=== PATIENT | female | born 1995 | race Caucasian/White ===

== ENCOUNTER 2022-01-21 17:04 | Outpatient (CLI) | payer BC, SELFPAY ==
--- NOTE | 2022-01-21 17:00 | CRLHL7_ITS ---
For Patients: As a result of the Cures Act, medical imaging exams and procedure reports are released immediately into your electronic medical record. You may view this report before your referring provider. If you have questions, please contact your health care provider. INDICATION: First trimester scan, establish dates. COMPARISON: None. TECHNIQUE: Real-time nj-scale imaging of the pelvis was performed. FINDINGS: Sonographic imaging demonstrates a single living intrauterine gestation. The embryo demonstrates a regular cardiac rate measuring 171 beats per minute. The embryo`s crown-rump length measurement of 2.6 cm corresponds to a gestational age of 9 weeks 3 days with a sonographic due date of 08/23/2022. There is a normal-appearing yolk sac. Umbilical cord cyst is present measuring 3 x 3 x 3 millimeters. The gestational sac has a normal appearance. There is no evidence of a perigestational hemorrhage. The amount of fluid within the sac appears appropriate for gestational age. The cervix is closed. The myometrium appears normal. The ovaries are of normal size. There are no suspicious fluid collections noted in the cul-de-sac. IMPRESSION: Single living intrauterine with sonographic gestational age 9 weeks 3 days and sonographic due date of 08/23/2022. 3 millimeter umbilical cord cyst, likely incidental. Follow-up in 10-11 days suggested. Dictated by Henrry So MD @ 01/22/2022 8:54:50 AM (Electronically Signed)
== END 2022-01-21 17:05 | disposition home or self-care (01) ==
LOC: US 17:05
PROVIDERS: Visit Provider Advanced Practice Midwife
DX: Z34.91 Encounter for supervision of normal pregnancy, unspecified, first trimester (principal); Z3A.09 9 weeks gestation of pregnancy
CPT/HCPCS: 76817

== ENCOUNTER 2022-02-18 14:31 | Outpatient (CLI) | payer BC, SELFPAY ==
--- NOTE | 2022-02-18 15:00 | CRLHL7_ITS ---
For Patients: As a result of the Century Cures Act, medical imaging exams and procedure reports are released immediately into your electronic medical record. You may view this report before your referring provider. If you have questions, please contact your health care provider. INDICATION: Follow-up umbilical cord cyst COMPARISON: 01/21/2022 TECHNIQUE: Real-time nj-scale imaging of the pelvis was performed. FINDINGS: Umbilical cord cyst not visualized on today`s exam. Single living intrauterine with sonographic gestational age 14 weeks 1 day and sonographic due date of 08/18/2022. Estimated weight 86 grams, 28th percentile. BPD 47th percentile. HC 36th percentile. AC 62nd percentile. FL 29th percentile. HC/AC ratio 1.21 (1.09-1.36). Transverse position. Placenta anterior. IMPRESSION: Single living intrauterine with sonographic gestational age 14 weeks 1 day and sonographic due date of 08/18/2022. Interval resolution of previously noted umbilical cord cyst. Dictated by Henrry So MD @ 02/18/2022 3:33:25 PM (Electronically Signed)
== END 2022-02-18 14:32 | disposition home or self-care (01) ==
PROVIDERS: Visit Provider Physician Assistant
DX: O36.8990 Maternal care for other specified fetal problems, unspecified trimester, not applicable or unspecified (principal); Z3A.14 14 weeks gestation of pregnancy
CPT/HCPCS: 76816

== ENCOUNTER 2022-03-25 08:39 | Outpatient (CLI) | payer BC, SELFPAY ==
--- NOTE | 2022-03-25 08:45 | CRLHL7_ITS ---
For Patients: As a result of the Century Cures Act, medical imaging exams and procedure reports are released immediately into your electronic medical record. You may view this report before your referring provider. If you have questions, please contact your health care provider. INDICATION: Evaluate anatomy. COMPARISON: 02/18/2022, 01/21/2022 TECHNIQUE: Real time nj scale imaging of the fetus was performed as well as color Doppler analysis of the umbilical vessels. FINDINGS: Sonographic imaging demonstrates a single living intrauterine gestation. Fetus demonstrates a regular cardiac rate of 143 beats per minute. Fetus has a vertex position. The placenta lies anteriorly without evidence of placenta previa. The placenta is located 6.8 cm from the internal cervical os. Amniotic fluid volume appears normal. Single deepest vertical pocket: 2.8 cm. The cervix is closed and measures 3.8 cm in length. The composite ultrasound gestational age is calculated at 18 weeks 6 days with an estimated sonographic due date of 08/20/2022. The estimated weight is 265 grams which lies at the 41st %. The following biometric measurements were obtained: Biparietal diameter: 4.3 cm/19 weeks 0 days 48th% Head circumference: 15.7 cm/18 weeks 4 days 23rd% Abdominal circumference: 13.5 cm/19 weeks 0 days 44th% Femur length: 2.9 cm/19 weeks 0 days 43rd% The HC/AC ratio measures: 1.16 range (1.09-1.26) On anatomic survey, there is a normal appearance of the cerebral ventricles, cavum septi pellucidi, cisterna magna and cerebellum. The nose, lips, and facial profile appear normal. The cervical, thoracic and lumbar spine are well visualized and appear normal. Incomplete visualization of the four-chamber heart and outflow tracts due to position. The diaphragm and stomach appear normal. The kidneys and bladder also appear normal. There is a normal three-vessel cord and cord insertion site. The four extremities appear normal. IMPRESSION: Concordance of clinical and sonographic dating. Incomplete visualization of the four-chamber heart and outflow tracts due to position. Short-term follow-up recommended. Remainder of the anatomic survey is normal. Dictated by Henrry So MD @ 03/25/2022 1:28:57 PM (Electronically Signed)
== END 2022-03-25 08:40 | disposition home or self-care (01) ==
PROVIDERS: Visit Provider Physician Assistant
DX: Z34.92 Encounter for supervision of normal pregnancy, unspecified, second trimester (principal); Z3A.19 19 weeks gestation of pregnancy
CPT/HCPCS: 76805

== ENCOUNTER 2022-04-22 14:40 | Outpatient (CLI) | payer BC, SELFPAY ==
--- NOTE | 2022-04-22 15:00 | CRLHL7_ITS ---
For Patients: As a result of the Century Cures Act, medical imaging exams and procedure reports are released immediately into your electronic medical record. You may view this report before your referring provider. If you have questions, please contact your health care provider. INDICATION: female. Follow up anatomic survey. A previous ultrasound March 25, 2022 demonstrated incomplete visualization of the four-chamber heart and outflow tracts. TECHNIQUE: Limited transabdominal obstetrical ultrasound. COMPARISON: March 25, 2022. FINDINGS: Single living intrauterine with a heart rate of 150 beats per minute. Normal amniotic fluid. Single deepest pocket measurement 4.4 cm. The right and left ventricular outflow tracts are within normal limits. The four-chamber heart view is within normal limits. IMPRESSION: Completion of the anatomic survey. The 4 chamber heart view and outflow tracts are within normal limits. Dictated by Charles Subramanian MD @ 04/23/2022 8:42:35 AM (Electronically Signed)
== END 2022-04-22 14:41 | disposition home or self-care (01) ==
PROVIDERS: Visit Provider Obstetrics & Gynecology
DX: O35.BXX0 Maternal care for other (suspected) fetal abnormality and damage, fetal cardiac anomalies, not applicable or unspecified (principal); Z3A.00 Weeks of gestation of pregnancy not specified
CPT/HCPCS: 76816

== ENCOUNTER 2022-05-20 15:13 | Outpatient (CLI) | payer BC, SELFPAY ==
[2022-05-24 01:45] LABS: Rapid Plasma Reagin (RPR) Non Reactive (Non Reactive)
== END 2022-05-20 15:14 | disposition home or self-care (01) ==
LOC: NFLDREF 15:14
PROVIDERS: Visit Provider Registered Nurse
DX: O26.892 Other specified pregnancy related conditions, second trimester (principal); Z67.91 Unspecified blood type, Rh negative; Z3A.27 27 weeks gestation of pregnancy
CPT/HCPCS: 86592; 86850

== ENCOUNTER 2022-07-22 15:00 | Outpatient (CLI) | payer BC, SELFPAY | END 2022-07-22 15:01 | disposition home or self-care (01) | LOC: NFLDREF 07-25 10:05 | PROVIDERS: Visit Provider Obstetrics & Gynecology | DX: Z34.93 Encounter for supervision of normal pregnancy, unspecified, third trimester (principal); Z3A.36 36 weeks gestation of pregnancy | CPT/HCPCS: 87081; 87653 ==

== ENCOUNTER 2022-08-06 14:13 | Inpatient (IN) | payer BC, SELFPAY ==
[2022-08-06] VITALS (12 sets, daily range): BP systolic 101–130; BP diastolic 58–85; PULSE 61–99; RESP 16–18; TEMP 36.9–37.1; O2SAT 100; BMI 35.6
[2022-08-06 14:52] LABS: Total Protein Urine 9 mg/dL
[2022-08-06 15:44] LABS: Basophils Percent Auto 0.2 % (0.0-3.0); Eosinophils Percent Auto 0.4 % (0.0-7.0); Hematocrit 32.7 % (33.0-51.0); Hemoglobin* 10.7 gm/dL (12.0-16.0); Immature Granulocytes Pct Auto 0.3 %; Lymphocytes Percent Auto 17.1 % (20-44); Mean Corpuscular HGB Conc 33 gm/dL (32-36); Mean Corpuscular Hemoglobin 27 pg (26-34); Mean Corpuscular Volume 81 fL (80-100); Monocytes Percent Auto 6.4 % (0.0-11.0); Neutrophils Percent Auto 75.6 % (42.0-72.0); Platelet Count* 238 K/uL (140-440); RDW Coefficient of Variation % 12.9 % (11.5-15.5); Red Blood Count 4.03 m/uL (4.00-5.20); White Blood Count* 12.23 K/uL (4.50-11.00)
--- NOTE | 2022-08-06 16:51 | W.PM.LDBA ---
Subjective History of Present Illness Date Seen: 08/06/22 Narrative: Patient is being admitted to Labor and Delivery for IOL after GHTN diagnosis. She is a 27 year old at 38 1/7 weeks gestation. Her full history and physical was dictated by Dr. Rivera on 07/30/22. Please see this for details. Patient seen yesterday in clinic and found with elevated blood pressure, monitored and found normal, sent home to repeat evaluation today and was found with diastolic of 90. Elevation of blood pressure more than 4 hours apart diagnosis of GTHN and recommendation for admission and start IOL. Comments: Specific Issues/Plans JAYLYN Blood type:? A negative Spouse: Grant. Baby: Male - Shaq 1. Obesity, BMI 33.8 No HgbA1C at her first ob ([facility]) 2. Lumbar disc disease, history of L4-L5 disc herniation.? Sees chiropractor.? 3. History of exercise-induced asthma, has not needed treatment since high school 4. Frequent UTIs, 2-3 per year.? None during .? 5. Rh-negative status RhoGAM:? 05/20/22 6. Umbilical cord cyst on first-trimester ultrasound Follow-up ultrasound with next visit: resolved 7. Anemia, with Hb 10.9 at 36 weeks.? Slow Fe QOD. 8.? Elevated BP in clinic on 08/05/22.? AST 38, Prot:cr 0.10, otherwise normal labs.? Serial BP in Center high-normal. To return for repeat BP and labs on 08/06/22.? Flu shot:? 12/26/2021 Bivalent covid booser: 12/26/2021 Tdap: 06/17/2022 OB - Problem Based A/P Additional Plan (1) Gestational hypertension: Status: Acute Plan 1. IOL started with placement of cook catheter at a 4:30pm, 60/60mL. Will leave in place for 12 hours, will plan to start IV oxytocin at around 9:30pm. 2. Continuos monitoring. 3. Patient plans to get epidural at some point for pain management. 4. Repeat preeclampsia labs tomorrow morning, unless there is clinical changes concerning for severe hypertension. 5. GBS negative no need for antibiotic prophylaxis. Delivery/Labor/Induction Plan Plan: induction Induction method: Intracervical balloon catheter OB Result Labs Labs: 08/06/22 Hgb: 10.7 Platelets: 238 BUN:12 Creatinine:0.6 AST: 31 ALT: 45 (from 38) slightly elevated, not doubled Prot/creat ratio:0.10 Labs Blood Type: A (-) negative Rubella: immune RPR/VDLR: nonreactive GBS Status: negative HBsAG: negative OB Exam Physical Exam Vital signs: Temp Pulse Resp BP Pulse Ox 98.8 F 76 16 130/83 100 08/06/22 14:29 08/06/22 15:41 08/06/22 14:29 08/06/22 15:41 08/06/22 14:22 Detailed Labor and Delivery Exam Patient Gravid: Yes Dilation (cm): 1 Effacement (%): 75 Cervix position: anterior Consistency: soft Contraction Frequency: Irregular Tachysystole: No Contraction intensity: Mild Fetus (Single) Station: -2 Amniotic Membrane Status: intact Heart Rate Baseline: 130 Monitor Accelerations: Present Monitor Decelerations: None [employer]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
[2022-08-06] MEDS: LACTATED RINGERS 1000 ML 1,000 ML 125 ML IV (20:53)
[2022-08-06] MEDS: OXYTOCIN 30 unit/500 ML in NS 30 UNIT/500 ML BAG IVPB (20:53)
[2022-08-07] VITALS (81 sets, daily range): BP systolic 99–143; BP diastolic 55–87; PULSE 63–200; RESP 16–18; TEMP 36.5–37.3; O2SAT 99–100
[2022-08-07 01:03] LABS: Slide Review Reflex No
[2022-08-07] MEDS: LACTATED RINGERS 1000 ML 1,000 ML 118 ML IV (03:55)
[2022-08-07 06:26] LABS: Hematocrit 31.3 % (33.0-51.0); Hemoglobin* 10.3 gm/dL (12.0-16.0); Mean Corpuscular HGB Conc 33 gm/dL (32-36); Mean Corpuscular Hemoglobin 27 pg (26-34); Mean Corpuscular Volume 81 fL (80-100); Platelet Count* 215 K/uL (140-440); Red Blood Count 3.86 m/uL (4.00-5.20)
[2022-08-07 06:30] LABS: Slide Review Reflex No
[2022-08-07 06:43] LABS: Alanine Aminotransferase* 49 U/L (4-35); Aspartate Amino Transferase* 33 U/L (12-35); Blood Urea Nitrogen* 8 mg/dL (5-24); Creatinine* 0.6 mg/dL (0.5-1.5); Est. Creatinine Clearance* 145.89; Estimated Glomerular Filt Rate 125 ml/min
[2022-08-07 07:04] LABS: Fibrinogen* 552 mg/dL (200-450)
--- NOTE | 2022-08-07 07:57 | PM.OBPNL ---
Subjective Time Seen by Provider: 08:40 Date Seen: 08/07/22 Narrative: Subjective: Patient is feeling mild cramping with contractions. Pitocin: 12 milliunits/minute. Blood pressure overnight range: 101-131/58-82. Vital signs: Per electronic medical record. EFM: Baseline 130 bpm, multiple accelerations, no decelerations, moderate variability, reactive. Category 1. [place]: Contractions every 2-5 minutes. SVE: 3 cm/90 %/-2. AROM at 8:55 a.m., clear fluid. Assessment: 27-year-old 1 para 0 at 38 weeks to days gestation undergoing induction of labor for gestational hypertension. Plan: 1. Continue Pitocin per labor induction protocol. 2. Planning epidural for labor analgesia. 3. Blood type A negative. 4. GBS negative Objective Vital Signs: Last Vital Signs Temp 98.4 F 08/07/22 06:43 Pulse 70 08/07/22 06:43 Resp 16 08/07/22 06:43 BP 126/72 08/07/22 06:43 Pulse Ox 100 08/06/22 14:22 Contractions Monitor mode: External Contraction Frequency: Q 2-5 minutes Contraction pattern: Irregular Contraction intensity: Mild Pitocin Rate (mU/min): 12 Assessment Assessment: induction ongoing Station: -2 Amniotic Membrane Status: AROM Status: Category l Heart Rate Baseline: 130 Civil Attorney Variability: Moderate (6-25) Monitor Accelerations: Present Monitor Decelerations: None Tracing Comments: Reactive
[2022-08-07] MEDS: LACTATED RINGERS 1000 ML 1,000 ML 110 ML IV (10:41)
[2022-08-07] MEDS: ROPIVACAINE 0.2 % PF 10 ML INJ 20 MG EPIDURAL (10:41)
[2022-08-07] MEDS: ROPIVACAINE 0.2% 100 ml 100 ML 12 MG EPIDURAL ×2 (10:42→18:37)
--- NOTE | 2022-08-07 11:57 | PM.ANBPRC ---
PFSH PFS Medical History (Updated 08/06/22 @ 17:02 by Latasha Dalton MD) Eczema ?L30.9 - Dermatitis, unspecified (ICD-10) History of recurrent UTIs ?Z87.440 - Personal history of urinary (tract) infections (ICD-10) GERD (gastroesophageal reflux disease) ?K21.9 - Gastro-esophageal reflux disease without esophagitis (ICD-10) Chronic constipation ?K59.09 - Other constipation (ICD-10) Asthma ?J45.909 - Unspecified asthma, uncomplicated (ICD-10) Lumbar disc disease ?M51.9 - Unspecified thoracic, thoracolumbar and lumbosacral intervertebral disc disorder (ICD-10) Surgical History (Updated 01/21/22 @ 13:44 by Shelley Ruiz PA-C) History of wisdom tooth extraction ?K08.409 - Partial loss of teeth, unspecified cause, unspecified class (ICD-10) Family History (Updated 01/21/22 @ 13:46 by Shelley Ruiz PA-C) Mother High blood pressure Spinal cord tumor Father High blood pressure Maternal Grandmother Diabetes Uncle Heart disease Family/Other Thyroid cancer Family/Other Lung cancer Social History (Updated 07/30/22 @ 09:51 by Shazia Rivera MD) 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 . Nonsmoker. Lives in [facility] with . Smoking Status: Never smoker Little interest or pleasure in doing things: not at all Feeling down, depressed, or hopeless: not at all Meds Home Medications and Allergies Home Medications Medication Instructions Recorded Confirmed Type triamcinolone acetonide 0.5 % 1 applic topical .PRN 01/21/22 08/06/22 History topical cream psyllium husk 3.4 gram/5.4 gram 1 tbsp PO ONCE 06/02/22 08/06/22 History oral powder (Metamucil) bisacodyl 5 mg tablet 5 mg PO ONCE 07/22/22 08/06/22 History ferrous sulfate 142 mg (45 mg 142 mg PO QDAY 07/30/22 08/06/22 History iron) tablet,extended release (Slow Fe) docosahexaenoic acid 50 mg PO .twice daily 08/05/22 08/06/22 History Allergies Allergy/AdvReac Type Severity Reaction Status Date / Time No Known Drug Allergies Allergy Verified 08/06/22 13:49 Results Labs Labs: Laboratory Results - last 24 hr 08/06/22 08/06/22 08/07/22 14:18 15:22 06:20 WBC 12.23 H 13.30 H RBC 4.03 3.86 L Hgb 10.7 L 10.3 L Hct 32.7 L 31.3 L MCV 81 81 MCH 27 27 MCHC 33 33 RDW Coeff of Misael 12.9 Plt Count 238 215 Neut % (Auto) 75.6 H Lymph % (Auto) 17.1 L Miller % (Auto) 6.4 Eos % (Auto) 0.4 Baso % (Auto) 0.2 Neut # (Auto) 9.20 H Lymph # (Auto) 2.10 Miller # (Auto) 0.80 Eos # (Auto) 0.00 Baso # (Auto) 0.00 Fibrinogen 552 H BUN 8 Creatinine 0.6 Estimated Creat Clear 145.89 Estimated GFR 125 Uric Acid 6.0 AST 33 ALT 49 H Urine Creatinine 78.0 Protein/Creatinin Ratio 0.10 Urine Total Protein 9 Blood Type A Negative Antibody Screen NEGATIVE Vital Signs Vital Signs: Last Vital Signs Temp 97.7 F 08/07/22 11:00 Pulse 74 08/07/22 11:53 Resp 16 08/07/22 08:00 BP 106/60 08/07/22 11:53 Pulse Ox 100 08/07/22 11:05 Weight: 108.919 kg Height: 175.26 cm Anesthesia Procedures Epidural Insertion Patient Location: OB Start Time: 10:40 Stop Time: 11:40 Start Date: 08/07/22 Stop Date: 08/07/22 Reason for Block: procedure for pain Patient Position: sitting Performed By: George Sanders Preanesthetic Checklist: IV checked, site marked, risks and benefits discussed, surgical consent, monitors and equipment checked, pre-op evaluation, timeout performed and anesthesia consent Prep: chlorhexidine gluconate Monitoring: blood pressure monitoring, continuous pulse oximetry and heart rate Approach: midline Vertebral Space: lumbar (1-5) Needle Type: Tuohy needle Injection Technique: continuous catheter (catheter) Needle gauge: 17 Needle Length (cm): 10 cm Needle Insertion Depth (cm): 6 Catheter Gauge: 19 Catheter Type: multi-orifice Catheter at skin depth (cm): 12 Test Dose Result: negative and lidocaine 1.5% with epinephrine 1 to 200,000
[2022-08-07 12:39] LABS: Hematocrit 34.2 % (33.0-51.0); Mean Corpuscular HGB Conc 32 gm/dL (32-36); Mean Corpuscular Hemoglobin 26 pg (26-34); Mean Corpuscular Volume 82 fL (80-100); Platelet Count* 214 K/uL (140-440); Red Blood Count 4.18 m/uL (4.00-5.20); White Blood Count* 15.56 K/uL (4.50-11.00)
[2022-08-07 12:43] LABS: Slide Review Reflex No
[2022-08-07 12:57] LABS: Alanine Aminotransferase* 56 U/L (4-35); Aspartate Amino Transferase* 33 U/L (12-35); Blood Urea Nitrogen* 8 mg/dL (5-24); Creatinine* 0.6 mg/dL (0.5-1.5); Est. Creatinine Clearance* 145.89; Estimated Glomerular Filt Rate 125 ml/min
--- NOTE | 2022-08-07 18:06 | P.OBPN_ITS ---
Subjective Time Seen by Provider: 17:45 Date Seen: 08/07/22 Narrative: Subjective: Patient is comfortable w/ epidural/uncomfortable with contractions. Pitocin: 17 milliunits/minute. Vital signs: Per electronic medical record. EFM: Baseline 140, + accelerations, one variable deceleration at 1801, moderate variability, reactive. Category 2. [place]: Contractions every 2-3 minutes. SVE: 10 cm/100 %/0 - +1. Assessment: 27-year-old 1 para 0 at 38 weeks 2 days gestation undergoing induction of labor due to gestational hypertension. Plan: 1. Continue Pitocin per labor induction protocol. 2. Will do some position changes on the spinning babies circuit then begin pushi ng. Objective Vital Signs: Last Vital Signs Temp 98.9 F 08/07/22 18:01 Pulse 131 H 08/07/22 17:37 Resp 16 08/07/22 08:00 BP 131/87 08/07/22 17:37 Pulse Ox 100 08/07/22 11:05 Contractions Monitor mode: External Contraction pattern: Irregular Contraction intensity: Mild Pitocin Rate (mU/min): 12 Assessment Station: -2 Amniotic Membrane Status: AROM Status: Category l Heart Rate Baseline: 130 Monitor Accelerations: Present Monitor Decelerations: None
[2022-08-07 19:04] LABS: Hematocrit 32.9 % (33.0-51.0); Hemoglobin* 10.7 gm/dL (12.0-16.0); Mean Corpuscular HGB Conc 33 gm/dL (32-36); Mean Corpuscular Hemoglobin 27 pg (26-34); Mean Corpuscular Volume 82 fL (80-100); Platelet Count* 208 K/uL (140-440); Red Blood Count 4.02 m/uL (4.00-5.20); White Blood Count* 16.97 K/uL (4.50-11.00)
[2022-08-07 19:10] LABS: Slide Review Reflex No
[2022-08-07 19:20] LABS: Alanine Aminotransferase* 54 U/L (4-35); Aspartate Amino Transferase* 32 U/L (12-35); Creatinine* 0.6 mg/dL (0.5-1.5); Est. Creatinine Clearance* 145.89; Estimated Glomerular Filt Rate 125 ml/min
[2022-08-07 19:21] LABS: Blood Urea Nitrogen* 8 mg/dL (5-24)
[2022-08-07] MEDS: miSOPROStoL 800 MCG/4 TABLET PR (21:44)
--- NOTE | 2022-08-07 22:08 | W.PM.VAGDEL1 ---
Procedure Delivery date: 08/07/22 Procedure Done: Global Procedure Details: Ericka is a 27 year-old G 1 P 0 now 1 admitted on 08/06/2022 at approximately 5:00 p.m. at 38 Weeks, 2 Days gestation for induction of labor for gestational hypertension. A Cook catheter was placed followed by low-dose Pitocin. AROM occurred at 8:55 a.m. on 08/07/2022 with clear fluid. Labor Analgesia: Epidural Pitocin: Yes Labor onset: 08/07/2022 at 10:30 a.m.. Complete: 08/07/2022 at 5:34 p.m.. Pushin08/07/2022 at 7:00 p.m.. heart tones during second stage were: Category 2 with intermittent variable/early decelerations with contractions. Two attempts at manual rotation of the vertex were performed during the 2nd stage due to minimal progress after 1 hour of pushing and a vertex noted to be in the ROT position. After 2nd manual rotation the vertex appeared to remain in direct OA position. Moderate variability throughout, reassuring. At 9:29 p.m. a viable male infant delivered in vertex direct OA presentation over second-degree perineal laceration with extension on to the left labia majus via spontaneous vaginal delivery. The was placed on maternal abdomen. Cord was clamped and cut after a 60+ second delay. Nose and mouth were bulb suctioned. weight pending. 8 at 1 minute and 9 at 5 minutes. Shoulder dystocia: No. Nuchal cord: Yes: Loose nuchal cord easily reduced prior to delivery of the 's shoulders. Terminal meconium was noted. Placenta delivered spontaneously and complete at 9:41 p.m. on 08/07/2022 with a 3 vessel cord. There was moderate uterine atony noted after delivery of the placenta. The uterus was cleared of clots with a manual removal. 800 mg Cytotec was placed rectally. Laceration(s): Second-degree. Repaired using 3-0 Vicryl suture in the usual manner. The extension of the second-degree laceration on to the left labia majus was repaired with 3-0 Vicryl in a running manner. Blood loss: 150 mL. Blood loss measurement type: Quantitative Sponge and needles counts are correct. Specimen: Placenta due to gestational hypertension Mother and infant were stable after delivery. 's name: Shaq Jones The patient is planning on breast feeding. Events: Gestational Hypertension and Labor Induction Delivery monitor: external FHT Route of delivery: Laceration description: Labial (Extension onto the left labia majus 1st degree.) Delivery repair: Vicryl Estimated blood loss (mL): 150 Anesthesia type: Epidural Disposition: floor [place] Infant Gender: Male presentation: vertex Placental Delivery Description: Spontaneous Cord Description: 3 Vessels, Nuchal Cord, Loose and Reduced
[2022-08-08] VITALS (7 sets, daily range): BP systolic 114–125; BP diastolic 76–84; PULSE 67–92; RESP 16–18; TEMP 36.6–37.2; O2SAT 96–100
[2022-08-08] MEDS: ACETAMINOPHEN 500 MG TABLET 1000 MG PO ×3 (00:11→19:20)
[2022-08-08] MEDS: IBUPROFEN 600 MG TABLET PO ×4 (02:34→20:37)
[2022-08-08 05:18] LABS: Hematocrit 28.8 % (33.0-51.0); Hemoglobin* 9.5 gm/dL (12.0-16.0); Mean Corpuscular HGB Conc 33 gm/dL (32-36); Mean Corpuscular Hemoglobin 27 pg (26-34); Mean Corpuscular Volume 80 fL (80-100); Platelet Count* 199 K/uL (140-440); Red Blood Count 3.59 m/uL (4.00-5.20); White Blood Count* 20.37 K/uL (4.50-11.00)
[2022-08-08 05:26] LABS: Slide Review Reflex No
[2022-08-08 05:33] LABS: Alanine Aminotransferase* 56 U/L (4-35); Aspartate Amino Transferase* 41 U/L (12-35); Blood Urea Nitrogen* 9 mg/dL (5-24); Creatinine* 0.7 mg/dL (0.5-1.5); Est. Creatinine Clearance* 125.04; Estimated Glomerular Filt Rate 121 ml/min
--- NOTE | 2022-08-08 07:59 | PM.OBDSVD1 ---
DS: Providers Provider Date Seen: 08/08/22 Date of admission: 08/06/22 14:13 Primary care physician: Not a Local Provider Admitting Clinician: Latasha Dalton MD Attending Physician on discharge: Latasha Dalton MD Date of Discharge: 08/08/22 DS: Diagnosis Discharge Diagnosis (1) Lactating mother: Status: Acute (2) care following vaginal delivery: Status: Acute (3) anemia: Status: Acute Exam Narrative: Exam Narrative: GENERAL APPEARANCE:? normal affect, alert, no distress? MOOD:? appropriate? CHEST:? clear to auscultation and percussion? HEART:? regular rate and rhythm? ABDOMEN:? soft, non-tender the uterine fundus is 2 cm Below Umbilicus, Midline and is appropriate for the stage of recovery. ? PERINEUM:? mild edema of the perineum, there is a 2nd degree that is healing well.? EXTREMITIES:? normal and no edema? Patient has no complaints? No active bleeding?? Doing well? She is requesting discharge home.? Const: Vital Signs, click to edit/add: Vital Signs - 24 hr 08/07/22 08:00 08/07/22 08:02 08/07/22 09:29 Temperature 98.4 F Pulse Rate 66 71 Pulse Rate [Pulse Oximeter] Respiratory Rate 16 Blood Pressure 122/83 125/74 Blood Pressure [Le ft Arm] Pulse Oximetry Oxygen Delivery [facility] 08/07/22 10:00 08/07/22 10:45 08/07/22 10:50 Temperature 98.3 F Pulse Rate Pulse Rate [Pulse Oximeter] Respiratory Rate Blood Pressure Blood Pressure [Le ft Arm] Pulse Oximetry [address] [facility] 08/07/22 10:52 08/07/22 10:55 08/07/22 10:57 Temperature Pulse Rate 83 78 81 Pulse Rate [Pulse Oximeter] Respiratory Rate Blood Pressure 135/84 142/78 H 136/86 Blood Pressure [Le ft Arm] Pulse Oximetry [facility] 10:59 08/07/22 11:00 08/07/22 11:00 Temperature 97.7 F Pulse Rate 71 Pulse Rate [Pulse Oximeter] Respiratory Rate Blood Pressure 131/81 Blood Pressure [Le ft Arm] Pulse Oximetry [address] [facility] 08/07/22 11:01 08/07/22 11:03 08/07/22 11:05 Temperature Pulse Rate 81 75 76 Pulse Rate [Pulse Oximeter] Respiratory Rate Blood Pressure 129/82 132/78 128/81 Blood Pressure [Le ft Arm] Pulse Oximetry 100 Oxygen Delivery Nd thod 08/07/22 11:12 08/07/22 11:16 08/07/22 11:21 Temperature Pulse Rate 77 73 74 Pulse Rate [Pulse Oximeter] Respiratory Rate Blood Pressure 115/55 L 103/56 L 99/58 L Blood Pressure [Le ft Arm] Pulse Oximetry Oxygen Delivery Nd thod 08/07/22 11:38 08/07/22 11:53 08/07/22 12:08 Temperature Pulse Rate 75 74 70 Pulse Rate [Pulse Oximeter] Respiratory Rate Blood Pressure 114/57 L 106/60 106/65 Blood Pressure [Le ft Arm] Pulse Oximetry Oxygen Delivery Nd thod 08/07/22 12:53 08/07/22 13:00 08/07/22 13:23 Temperature 98.2 F Pulse Rate 69 75 Pulse Rate [Pulse Oximeter] Respiratory Rate Blood Pressure 99/58 L 105/69 Blood Pressure [Le ft Arm] Pulse Oximetry Oxygen Delivery Nd thod 08/07/22 13:38 08/07/22 13:52 08/07/22 14:09 Temperature Pulse Rate 71 68 73 Pulse Rate [Pulse Oximeter] Respiratory Rate Blood Pressure 108/61 111/63 109/62 Blood Pressure [Le ft Arm] Pulse Oximetry Oxygen Delivery Nd thod 08/07/22 14:23 08/07/22 14:37 08/07/22 14:45 Temperature 98.2 F Pulse Rate 69 65 Pulse Rate [Pulse Oximeter] Respiratory Rate Blood Pressure 109/61 112/61 Blood Pressure [Le ft Arm] Pulse Oximetry Oxygen Delivery Nd thod 08/07/22 14:53 08/07/22 15:08 08/07/22 15:23 Temperature Pulse Rate 68 63 74 Pulse Rate [Pulse Oximeter] Respiratory Rate Blood Pressure 106/59 L 116/59 L 117/60 Blood Pressure [Le ft Arm] Pulse Oximetry Oxygen Delivery Nd thod 08/07/22 15:39 08/07/22 15:45 08/07/22 15:53 Temperature 98.1 F Pulse Rate 68 94 Pulse Rate [Pulse Oximeter] Respiratory Rate Blood Pressure 111/56 L 130/76 Blood Pressure [Le ft Arm] Pulse Oximetry Oxygen Delivery Nd thod 08/07/22 16:08 08/07/22 16:22 08/07/22 16:30 Temperature 98.2 F Pulse Rate 81 78 Pulse Rate [Pulse Oximeter] Respiratory Rate Blood Pressure 131/78 128/73 Blood Pressure [Le ft Arm] Pulse Oximetry Oxygen Delivery Nd thod 08/07/22 16:37 08/07/22 16:54 08/07/22 17:07 Temperature Pulse Rate 90 91 97 Pulse Rate [Pulse Oximeter] Respiratory Rate Blood Pressure 126/75 143/75 H 125/69 Blood Pressure [Le ft Arm] Pulse Oximetry Oxygen Delivery Nd thod 08/07/22 17:23 08/07/22 17:37 08/07/22 18:01 Temperature 98.9 F Pulse Rate 92 131 H Pulse Rate [Pulse Oximeter] Respiratory Rate Blood Pressure 126/80 131/87 Blood Pressure [Le ft Arm] Pulse Oximetry [facility] 08[facility] 18:23 08/07/22 18:38 08/07/22 18:53 Temperature Pulse Rate 93 91 200 H Pulse Rate [Pulse Oximeter] Respiratory Rate Blood Pressure 118/78 126/72 127/73 Blood Pressure [Le ft Arm] Pulse Oximetry [facility] 08/07/22 19:08 08/07/22 19:19 08/07/22 19:23 Temperature 98.7 F Pulse Rate 71 68 Pulse Rate [Pulse Oximeter] Respiratory Rate 18 Blood Pressure 125/67 129/63 Blood Pressure [Le ft Arm] Pulse Oximetry [facility] 08/07/22 19:23 08/07/22 19:38 08/07/22 19:53 Temperature 98.2 F Pulse Rate 65 71 Pulse Rate [Pulse Oximeter] Respiratory Rate 16 Blood Pressure 125/65 126/68 Blood Pressure [Le ft Arm] Pulse Oximetry [facility] 08/07/22 20:10 08/07/22 20:24 08/07/22 21:08 Temperature 98.5 F Pulse Rate 92 129 H Pulse Rate [Pulse Oximeter] Respiratory Rate Blood Pressure 111/58 L 115/75 Blood Pressure [Le ft Arm] Pulse Oximetry [facility] 08/07/22 21:38 08/07/22 21:43 08/07/22 21:44 Temperature 98.7 F Pulse Rate 89 82 Pulse Rate [Pulse Oximeter] Respiratory Rate 18 Blood Pressure 130/78 129/80 Blood Pressure [Le ft Arm] Pulse Oximetry Oxygen Delivery Me thod 08/07/22 21:58 08/07/22 22:00 08/07/22 22:13 Temperature 98.2 F Pulse Rate 90 86 Pulse Rate [Pulse Oximeter] Respiratory Rate 18 Blood Pressure 120/72 113/66 Blood Pressure [Le ft Arm] Pulse Oximetry [facility] 08/07/22 22:15 08/07/22 22:28 08/07/22 22:30 Temperature 98.2 F 99.2 F Pulse Rate 95 Pulse Rate [Pulse Oximeter] Respiratory Rate 18 18 Blood Pressure 113/66 Blood Pressure [Le ft Arm] Pulse Oximetry [facility] 08/07/22 22:43 08/07/22 22:45 08/07/22 22:58 Temperature 98.7 F Pulse Rate 94 86 Pulse Rate [Pulse Oximeter] Respiratory Rate 18 Blood Pressure 117/57 L 124/65 Blood Pressure [Le ft Arm] Pulse Oximetry Oxygen Delivery Nd thod 08/07/22 23:00 08/07/22 23:13 08/07/22 23:15 Temperature 98.3 F Pulse Rate 85 Pulse Rate [Pulse Oximeter] Respiratory Rate 18 18 Blood Pressure 121/66 Blood Pressure [Le ft Arm] Pulse Oximetry [facility] 08/07/22 23:28 08/07/22 23:30 08/07/22 23:43 Temperature Pulse Rate 79 80 Pulse Rate [Pulse Oximeter] Respiratory Rate 18 Blood Pressure 124/64 126/67 Blood Pressure [Le ft Arm] Pulse Oximetry [facility] 08/07/22 23:45 08/08/22 00:08 08/08/22 04:30 Temperature 98.9 F 99.0 F 98.6 F Pulse Rate Pulse Rate [Pulse Oximeter] 92 92 Respiratory Rate 18 18 18 Blood Pressure Blood Pressure [Le ft Arm] 122/76 125/81 Pulse Oximetry 99 99 Oxygen Delivery Nd thod Room Air Room Air OB - DS: Summary Hospital Course Hospital Course: Patient is a 27year old, G 1 now P 1? admitted on 08/07/22 at 38 Weeks, 2 Days gestation.? She had an uncomplicated vaginal delivery.? She delivered a viable male infant.? She is breast feeding and reports that bay is having some difficulty with latching. Planning on seeing today and she is questioning if baby has a lip tie.? the patient has done well.? Her pain is well controlled with current medications.? She has no new complaints.? Vitals have been stable. She has remained afebrile. She is voiding without difficulty. She is passing gas and has not had a bowel movement. She is ambulating and denies any dizziness. She is probably planning IUD for control.??? Peripartum Data delivery method: Vaginal Laceration description: Perineal - 2nd Degree Episiotomy description: None complications: none Gender: Male Infant Discharge Plan: Home Status at Discharge Functional status at discharge: independent ambulation Overall status at discharge: patient is progressing back to baseline Time Spent with Patient Time attestation: Total time spent providing and/or coordinating discharge services: Discharge Plan Discharge Disposition: Home, Self-Care Date of Admission: 08/06/22 14:13 Attending Provider on Discharge: Ashia Delgado Primary Care Provider: Provider,Not a Local Condition: Stable Anticipated Discharge Date/Time: 08/09/22 15:00 Discharge Medications: New docusate sodium 100 mg Capsule 100 mg PO DAILY Qty: 100 0RF ibuprofen 600 mg Tablet 600 mg PO Q6H PRNQty: 30 0RF Continued Metamucil 3.4 gram/5.4 gram powder 1 tbsp PO ONCE Rx Instructions: mix into at least 8 oz of water or juice before administering triamcinolone acetonide 0.5 % cream 1 applic topical .PRN bisacodyl 5 mg tablet 5 mg PO ONCE Patient Comments: pt reports taking 10 mg today Slow Fe 142 mg (45 mg iron) tablet extended release 142 mg PO QDAY docosahexaenoic acid [ DHA] 50 mg PO .twice daily Discharge Orders: Discharge Order (Routine); Ordered 08/08/22 Ordered By: Ashia Delgado Patient Education: Your Baby (DC), Bleeding (DC), Vaginal Delivery (DC), Hypertension During (DC) Additional Instructions: NO ACTIVITY RESTRICTIONS EXCEPT: Nothing vaginally for 6 weeks. No intercourse or tampons. Off of work for a minimum of 6 weeks. Symptoms to report to doctor: -Bleeding that saturates more than one pad per hour ?-Passing clots larger than the size of a golf ball ?-Pain not relieved by prescribed medication ?-Fever above 100.4 degrees Fahrenheit ?-A foul vaginal odor ?-Difficulty in emotions, mood and functions ?-Thoughts of hurting yourself and/or ?-Painful, reddened area in your breast ?-Any drainage, redness or tenderness in your IV/epidural site ?-Severe headache that doesn't improve after taking medications ?-Changes in vision, including temporary loss of vision, blurred vision, and/or light sensitivity ?-Upper abdominal pain (usually under ribs on the right side) ?-Decrease in urination or painful, frequent urinating ?-Chest pain ?-Shortness of breath ?-Tenderness or pain with redness and/swelling in the calf(s) of your leg Follow-up Appointments: [facility]. [facility] for a [facility] check. 2. Optional 2 week visit: Review contraceptive options, screen for anxiety/depression, answer questions regarding infant care. 3. A 6 week visit for an annual physical exam. consultation services are available to all mothers and babies for the first year after delivery.? To make an appointment, please call [phone]. Discharge Diet: Regular Follow Up Appointments: [facility] [Provider Group] Provider,Not a Local [Primary Care Provider] - Forms: [facility] Info Instructions
[2022-08-08] MEDS: DOCUSATE SODIUM 100 MG CAPSULE PO (08:58)
[2022-08-09] MEDS: ACETAMINOPHEN 500 MG TABLET 1000 MG PO ×2 (01:33→08:57)
[2022-08-09 03:31] VITALS: BP 117/80; PULSE 80; RESP 16; TEMP 36.7; O2SAT 98
[2022-08-09] MEDS: IBUPROFEN 600 MG TABLET PO ×2 (03:35→11:04)
--- NOTE | 2022-08-09 08:37 | PM.OBDSVD1 ---
DS: Providers Provider Time Seen by Provider: 08:37 Date Seen: 08/09/22 Date of admission: 08/06/22 14:13 Primary care physician: Not a Local Provider Admitting Clinician: Latasha Dalton MD Attending Physician on discharge: Latasha Dalton MD DS: Diagnosis Discharge Diagnosis (1) anemia: Status: Acute (2) care following vaginal delivery: Status: Acute (3) Second degree perineal laceration: Status: Acute (4) (normal spontaneous vaginal delivery): Status: Acute (5) Lactating mother: Status: Acute (6) Gestational hypertension: Status: Acute (7) Chronic constipation: Status: Acute Exam Narrative: Exam Narrative: Physical exam: General: No acute distress Psych: Alert and oriented x3, full affect HEENT: Normocephalic, atraumatic Neck: No cervical adenopathy, no thyromegaly Heart: Regular rate and rhythm, no murmur rub or gallop Lungs: Clear to auscultation bilaterally Abdomen: Normoactive bowel sounds, soft, no tenderness, rebound, or guarding. No suprapubic/uterine tenderness Skin: No lesions or rashes Breasts: no nodules or masses, no nipple discharge, no axillary adenopathy Lower extremities: +1 bilateral edema Pelvic exam: Scant lochia Const: Vital Signs, click to edit/add: Vital Signs - 24 hr 08/08/22 12:00 08/08/22 16:30 08/08/22 20:00 Temperature 97.8 F 98.2 F 98.3 F Pulse Rate [Pulse Oximeter] 67 72 84 Respiratory Rate 16 16 16 Blood Pressure [Le ft Arm] 121/84 121/83 121/81 Pulse Oximetry 100 97 96 Oxygen Delivery Me thod Room Air Room Air Room Air 08/08/22 23:55 08/09/22 03:31 Temperature 98.5 F 98.0 F Pulse Rate [Pulse Oximeter] 85 80 Respiratory Rate 16 16 Blood Pressure [Le ft Arm] 119/82 117/80 Pulse Oximetry 97 98 Oxygen Delivery Me thod Room Air Room Air OB - DS: Summary Hospital Course Hospital Course: Patient is a 27year old, G 1 now P 1? admitted on 08/07/22 at 38 Weeks, 2 Days gestation.? She had an uncomplicated vaginal delivery.? She delivered a viable male .? She is breast feeding and get education from pediatric provider/nutrient management specialist. the patient has done well.?Her pain is well controlled with current medications.? She has no new complaints.? Vitals have been stable. She has remained afebrile. She is voiding without difficulty. She is passing gas. She is ambulating and denies any dizziness. She is probably planning IUD for control. Patient denies chest pain, SOB, n/v, headache, RUQ pain, vision changes, dizziness. ? Time spent discussing smoking cessation with patient: 3 to 10 minutes [place] Gender: Male Infant Discharge Plan: Home Time Spent with Patient Time attestation: Total time spent providing and/or coordinating discharge services: Discharge Plan Discharge Disposition: Home, Self-Care Date of Admission: 08/06/22 14:13 Attending Provider on Discharge: Merlene Abreu MD Primary Care Provider: Provider,Not a Local Condition: Stable Anticipated Discharge Date/Time: 08/09/22 15:00 Discharge Medications: New docusate sodium 100 mg Capsule 100 mg PO DAILY Qty: 100 0RF ibuprofen 600 mg Tablet 600 mg PO Q6H PRNQty: 30 0RF Continued Metamucil 3.4 gram/5.4 gram powder 1 tbsp PO ONCE Rx Instructions: mix into at least 8 oz of water or juice before administering triamcinolone acetonide 0.5 % cream 1 applic topical .PRN bisacodyl 5 mg tablet 5 mg PO ONCE Patient Comments: pt reports taking 10 mg today Slow Fe 142 mg (45 mg iron) tablet extended release 142 mg PO QDAY docosahexaenoic acid [ DHA] 50 mg PO .twice daily Discharge Orders: Discharge Order (Routine); Ordered 08/08/22 Ordered By: Ashia Delgado Patient Education: Your Baby (DC), Bleeding (DC), Vaginal Delivery (DC), Hypertension During (DC) Additional Instructions: NO ACTIVITY RESTRICTIONS EXCEPT: Nothing vaginally for 6 weeks. No intercourse or tampons. Off of work for a minimum of 6 weeks. Symptoms to report to doctor: -Bleeding that saturates more than one pad per hour ?-Passing clots larger than the size of a golf ball ?-Pain not relieved by prescribed medication ?-Fever above 100.4 degrees Fahrenheit ?-A foul vaginal odor ?-Difficulty in emotions, mood and functions ?-Thoughts of hurting yourself and/or ?-Painful, reddened area in your breast ?-Any drainage, redness or tenderness in your IV/epidural site ?-Severe headache that doesn't improve after taking medications ?-Changes in vision, including temporary loss of vision, blurred vision, and/or light sensitivity ?-Upper abdominal pain (usually under ribs on the right side) ?-Decrease in urination or painful, frequent urinating ?-Chest pain ?-Shortness of breath ?-Tenderness or pain with redness and/swelling in the calf(s) of your leg Follow-up Appointments: 1. [facility] for a blood pressure check. 2. Optional 2 week visit: Review contraceptive options, screen for anxiety/depression, answer questions regarding care. 3. A 6 week visit for an annual physical exam. consultation services are available to all mothers and babies for the first year after delivery.? To make an appointment, please call [phone]. Activity Level: Activity as Tolerated Activity Detail: Pelvic rest x 6 weeks Discharge Diet: Regular Follow Up Appointments: [facility] [Provider Group] Provider,Not a Local [Primary Care Provider] - Forms: [facility] Info Instructions
[2022-08-09 08:45] VITALS: BP 127/82; PULSE 75; RESP 16; TEMP 36.4; O2SAT 99
[2022-08-09] MEDS: DOCUSATE SODIUM 100 MG CAPSULE PO (08:57)
[2022-08-09 12:52] VITALS: BP 126/67; PULSE 80; RESP 16; TEMP 36.4; O2SAT 99
== END 2022-08-09 13:00 | disposition home or self-care (01) | DRG 560 ==
PROVIDERS: Obstetrics & Gynecology; Admitting Provider Obstetrics & Gynecology; Visit Provider Obstetrics & Gynecology
DX: O13.4 Gestational [pregnancy-induced] hypertension without significant proteinuria, complicating childbirth (principal); O70.1 Second degree perineal laceration during delivery; Z3A.38 38 weeks gestation of pregnancy; Z37.0 Single live birth; D64.9 Anemia, unspecified; O99.02 Anemia complicating childbirth; K59.00 Constipation, unspecified; O99.62 Diseases of the digestive system complicating childbirth; O62.2 Other uterine inertia; O26.893 Other specified pregnancy related conditions, third trimester; Z67.91 Unspecified blood type, Rh negative
CPT/HCPCS: 01967; 36415; 59025; 59200; 76815; 82565; 82570; 84156; 84450; 84460; 84520; 84550; 85025; 85027; 85384; 85461; 86850; 86900; 86901; 88307; 99213; A9270; C1726; J2370; J2791; J2795; J7120

== ENCOUNTER 2022-09-05 10:08 | Outpatient (CLI) | payer BC, SELFPAY ==
--- NOTE | 2022-09-05 17:00 | W.PM.LAC.MC ---
Consult Note - Mom Date of Visit Date of visit: 09/05/22 professional housing consultant: Divine Navarrete Visit Code: Visit Patient's Information Phone number: [phone] : 1 Para: 1 Allergies No Known Drug Allergies Allergy (Verified 08/06/22 13:49) Mother's Medical History: Medical History Delivery Information Delivery type: Vaginal Weeks Gestation: 38.2 Gestational Age: AGA Weight: 3.33 kg Discharge Weight: 3.252 kg Baby's Information Baby's Age at Visit: one month Baby's Provider or Clinic: Dr. Cabrera Jaundice: No Reason for Consult Reason for Consult: slow weight gain (not at BW at one month) Past Experience Past Experience: No Current Frequency of Day Feedings: every 3 - 3.5 hours Frequency of Night Feedings: nurses twice overnight Both Breasts: No (seems satisfied after one side) Suck: fairly strong Latch: wide Length of Time: about 20 mintues Pumping Pumping: Yes (BID, has pumped a little more often since PC visit on 09/03) Quantity Pumped: 1 - 2 oz total each time Supplementing EMB Supplement: Yes (POC attempt about twice/day, baby has a hard time with the bottle) Formula Supplement: No Baby Elimination Number of Wet Diapers a Day: almost every feeding Number of BM a Day: about twice/24 hours Breast/Nipple Condition Breast Information: WNL Maternal Nipple Condition - Left: Common Nipple Maternal Nipple Condition - Right: Common Nipple Sore Nipples: No Onsite Pre-Feed weight: 3.184 kg Post-Feed weight: 3.28 kg Milk Transferred (mL): 96 Pre-Nursing Left Nipple: Within Normal Limits Pre-Nursing Right Nipple: Within Normal Limits Post-Nursing Left Nipple: Within Normal Limits Post-Nursing Right Nipple: Within Normal Limits Assessments/Interventions Assessments/Interventions: Met with mom and her now one month old ex- term AGA baby for consult.? Mom reports he had a one month visit with his PCP on 09/03 and was not yet back up to BW; she also thinks baby has some reflux.? Per mom the provider suggested she nurse more frequently during the day, and suggested holding off on any medication for now.? Baby was to return for another weight check on 09/08.? Mom reports that baby is nursing every 3 - 3.5 hours during the day and has two night feedings.? She states he usually only wants one side and nursing sessions take about 20 minutes.? She's pumping BID (has increased her pumping sessions since his last appointment) and gets 1 - 2 oz total each time.? She has offered a bottle but states he has a lot of trouble with it and it can take 30 - 40 minutes for him to take one oz. Breasts WNL- symmetrical with rounded lower quadrants, intramammary distance is < 1.5 inches.? Nipples are everted and don't flatten or retract on compression, no damage noted.? Baby has gained 39 grams/day since his last visit and is now 5% below BW (up from 7%).? Mom denies any caput/cephalohematoma at delivery.? He has equal ROM when turning his head and moving his extremities but he seems to have a higher tone than normal and mom reports he rarely relaxes, he's always bunched up.? She states he seems tense when she gives him the bottle or the pacifier and he chomps or bites more than sucks.? His upper lip is difficult to flange and his gums angeles when doing so.? His palate is WNL and he has a strong suck on a finger.? He had his tongue clipped before D/C from the hospital and it does extend past the gumline.? It's somewhat heart shaped when he lifts it however and he's not able to lateralize.? Mom latched him to the right side and he had a wide asymmetrical latch, lips were flanged and mom was comfortable; the only abnormality was the cheek dimpling while nursing.? Swallowing was heard and after about 15 minutes he transferred 60 ml.? Mom reports that she usually only offers one side b/c she keeps him upright to prevent him from spitting up and he usually falls asleep so she assumed he was full.? Today she offered the left side and again he had a great latch aside from the dimpling.? He nursed another 10 minutes and transferred 36 ml for a total of 96 ml.? Mom burped him then offered the bottle (she's using a size 4 John).? He had trouble with it and did have more of a bite and uncoordination when he tried to suck.? In about a 5 minute attempt he really didn't transfer anything.? Did not see any s/s of reflux during this visit. We discussed he seems to be tense/tight/have high tone as well as having some signs of poor latch (with the dimpling). He also has some uncoordinated tongue movements.? Suggested that exercises might help so five were demonstrated, then practiced by mom (body and jaw massage, kissy face, follow the leader, cheek chomps, lollipop stretch).? Suggested POC try these about 5 times/day.? Also gave her a handout on bodywork therapists in the area. Plan: 1. OK to keep his feeding schedule at night but suggested mom not let him go past three hours during the day.? Also suggested she offer both sides at every feeding.? Aim for 7 - 8 nursing sessions in 24 hours. 2. OK to go back to pumping 1 - 2 times/day. 3. Suggested she offer about .5 oz of EBM in a bottle daily or every few days to see if the exercises improve how he takes the bottle. 4. Will f/u on 09/12 in . Meds Home Medications and Allergies Home Medications Medication Instructions Recorded Confirmed Type triamcinolone acetonide 0.5 % 1 applic topical .PRN 01/21/22 08/06/22 History topical cream psyllium husk 3.4 gram/5.4 gram 1 tbsp PO ONCE 06/02/22 08/06/22 History oral powder (Metamucil) bisacodyl 5 mg tablet 5 mg PO ONCE 07/22/22 08/06/22 History ferrous sulfate 142 mg (45 mg 142 mg PO QDAY 07/30/22 08/06/22 History iron) tablet,extended release (Slow Fe) docosahexaenoic acid 50 mg PO .twice daily 08/05/22 08/06/22 History Allergies Allergy/AdvReac Type Severity Reaction Status Date / Time No Known Drug Allergies Allergy Verified 08/06/22 13:49
== END 2022-09-05 10:09 | disposition home or self-care (01) ==
LOC: OB LAC 10:10
PROVIDERS: Visit Provider Physician Assistant
DX: Z39.1 Encounter for care and examination of lactating mother (principal)
CPT/HCPCS: 99211